=== PATIENT | female | born 1950 | race Caucasian/White ===

== ENCOUNTER 2017-05-30 03:45 | Emergency (ER) | payer MEDICARE, BC ==
[2017-05-30 03:51] VITALS: BP 152/84
[2017-05-30] MEDS ORDERED: Ondansetron 4 MG/2 ML SDV IV ONE (04:07)
--- NOTE | 2017-05-30 04:14 | EDM.PDOC ---
ED HPI GENERAL MEDICAL PROBLEM - General Chief Complaint: Gastrointestinal Problem Stated Complaint: VOMITTING, [id number] Time Seen by Provider: 05/30/17 04:00 Source of Information: Reports: Patient History Limitations: Reports: No Limitations - History of Present Illness INITIAL COMMENTS - FREE TEXT/NARRATIVE: This 67 yo female patient reports to the ED with nausea, upper abdominal pain and chest pain. The patient reports her upper abdominal pain started at about 2130 last night and has been getting worse since that time. At about 0100 this morning, the patient reports she started vomiting and feeling nauseated. After 0200 this morning, the patient reports constant nausea and vomiting. The patient started to have chest pain at about 0200. The patient describes her chest pain as a burning in the middle of her chest. The patient reports she does have a cardiac history (her cardiac rhythm intermittently goes in to bigeminy). The patient reports none of those symptoms in the past 6 months. The patient reports she did have chips, guacamole and pizza for dinner last night. Onset: Gradual Onset Date: 05/29/17 Onset Time: 21:30 Duration: Getting Worse, Intermittent Location: Reports: Chest, Abdomen Quality: Reports: Ache, Burning, Dull Severity: Moderate Improves with: Reports: None Worsens with: Reports: None Associated Symptoms: Reports: No Other Symptoms Mid-Sternal Chest Pain Score (Numeric/FACES): 1 - Related Data Allergies Allergy/AdvReac Type Severity Reaction Status Date / Time hydrocodone Allergy Cannot Verified 05/30/17 03:56 Remember paroxetine HCl [From Paxil] Allergy Cannot Verified 05/30/17 03:56 Remember sertraline HCl [From Zoloft] Allergy Cannot Verified 05/30/17 03:56 Remember Home Meds: Home Meds buPROPion [Wellbutrin XL] 150 mg PO DAILY 05/30/17 [History] Past Medical History Other HEENT History: eye surgery Other Cardiovascular History: bigeminy, PVC's Other Gastrointestinal History: abdmenial surgery Genitourinary History: Reports: Renal Calculus Other Genitourinary History: Ureter Stent - Past Surgical History Female Surgical History: Reports: Hysterectomy Other Musculoskeletal Surgeries/Procedures:: Arm wrist carpal tunnel, bunionectomy Social & Family History - Tobacco Use Smoking Status *Q: Never Smoker Second Hand Smoke Exposure: No - Recreational Drug Use Recreational Drug Use: No - Living Situation & Occupation Living situation: Reports: , with Spouse Occupation: Retired ED ROS GENERAL - Review of Systems Review Of Systems: ROS reveals no pertinent complaints other than HPI. ED EXAM, GI/ABD - Physical Exam Exam: See Below Exam Limited By: No Limitations General Appearance: Alert, WD/WN, Moderate Distress Eyes: Bilateral: Normal Appearance, EOMI Ears: Normal External Exam, Normal Canal, Hearing Grossly Normal, Normal TMs Nose: Normal Inspection, Normal Mucosa, No Blood Throat/Mouth: Normal Inspection, Normal Lips, Normal Teeth, Normal Gums, Normal Oropharynx, Normal Voice, No Airway Compromise Head: Atraumatic, Normocephalic Neck: Normal Inspection, Supple, Non-Tender, Full Range of Motion Respiratory/Chest: No Respiratory Distress, Lungs Clear, Normal Breath Sounds, No Accessory Muscle Use, Chest Non-Tender Cardiovascular: Normal Peripheral Pulses, Regular Rate, Rhythm, No Edema, No Gallop, No JVD, No Murmur, No Rub GI/Abdominal: Normal Bowel Sounds, Soft, Non-Tender, No Organomegaly, No Distention, No Abnormal Bruit, No Mass, Pelvis Stable (Female) Exam: Deferred Rectal (Female) Exam: Deferred Back Exam: Normal Inspection, Full Range of Motion, NT Extremities: Normal Inspection, Normal Range of Motion, Non-Tender, Normal Capillary Refill, No Pedal Edema Neurological: Alert, Oriented, CN II-XII Intact, Normal Cognition, Normal Gait, Normal Reflexes, No Motor/Sensory Deficits Psychiatric: Normal Affect, Normal Mood Skin Exam: Warm, Dry, Intact, Normal Color, No Rash Lymphatic: No Adenopathy Course - Vital Signs Last Recorded V/S: Last Vital Signs Temp 36.2 C 05/30/17 03:47 Pulse 83 05/30/17 03:47 Resp 20 05/30/17 03:47 BP 152/84 H 05/30/17 03:47 Pulse Ox 100 05/30/17 03:47 - Orders/Labs/Meds Orders: Active Orders 24 hr Category Date Time Status EKG Documentation Completion [RC] URGENT Care 05/30/17 03:56 Active Chest 1V Frontal [CR] Urgent Exams 05/30/17 04:07 Taken Labs: Laboratory Tests 05/30/17 05/30/17 05/30/17 Range/Units 03:55 03:55 03:55 WBC 17.9 H (5.0-10.0) 10^3/uL RBC 4.97 (4.2-5.4) 10^6/uL Hgb 13.3 (12.0-16.0) g/dL Hct 39.4 (37.0-47.0) % MCV 79.3 L (80-100) fL MCH 26.8 L (27.0-34.0) pg MCHC 33.8 (33.0-35.0) g/dL Plt Count 256 (150-450) 10^3/uL Neut % (Auto) 81.4 H (42.2-75.2) % Lymph % (Auto) 12.2 L (20.5-50.1) % [place] % (Auto) 5.9 (2-8) % Eos % (Auto) 0.4 L (1.0-3.0) % Baso % (Auto) 0.1 (0.0-1.0) % Sodium 141 (135-145) mmol/L Potassium 3.6 (3.6-5.0) mmol/L Chloride 102 (101-111) mmol/L Carbon Dioxide 27.0 (21.0-31.0) mmol/L Anion Gap 15.6 BUN 36 H (7-18) mg/dL Creatinine 0.9 (0.6-1.3) mg/dL Est Cr Clr Drug Dosing 56.00 mL/min Estimated GFR (MDRD) > 60 BUN/Creatinine Ratio 40.00 Glucose 185 H (74-105) mg/dL Calcium 9.3 (8.4-10.2) mg/dl Total Bilirubin 0.7 (0.2-1.0) mg/dL AST 24 (10-42) IU/L ALT 24 (10-60) IU/L Alkaline Phosphatase 50 (42-121) IU/L Troponin I < 0.02 (0.00-0.02) ng/ml Total Protein 6.8 (6.7-8.2) g/dl Albumin 4.3 (3.2-5.5) g/dl Globulin 2.5 Albumin/Globulin Ratio 1.72 Amylase 76 (28-100) U/L Lipase 18 L (22-51) U/L Meds: Medications Discontinued Medications Generic Name Dose Route Start Last Admin Trade Name Freq PRN Reason Stop Dose Admin Ondansetron HCl 4 mg 05/30/17 04:07 05/30/17 04:11 Zofran IV 05/30/17 04:08 4 mg ONETIME ONE Administration Departure - Departure Time of Disposition: 04:50 Disposition: Home, Self-Care 01 Condition: Fair Clinical Impression: Gastroenteritis - Discharge Information Instructions: Viral Gastroenteritis, Adult, [id number] Forms: ED Department Discharge Care Plan Goals: The patient was advised of the examination, lab, EKG and x-ray results during the visit. The patient was given a dose of IV Zofran while in the ED. The patient was discharged with a script for Zofran ODT (4 mg) #20 to take 1 by mouth every 6 hours as needed for nausea. If the patient has any additional symptoms or concerns, the patient may either follow-up with her primary care facility or return to the emergency department. - My Orders Last 24 Hours: My Active Orders 05/30/17 03:56 EKG Documentation Completion [RC] URGENT 05/30/17 04:07 Chest 1V Frontal [CR] Urgent - Assessment/Plan Last 24 Hours: My Active Orders 05/30/17 03:56 EKG Documentation Completion [RC] URGENT 05/30/17 04:07 Chest 1V Frontal [CR] Urgent
[2017-05-30 04:26] LABS: CHLORIDE,CL 102 mmol/L (101-111); SODIUM,NA 141 mmol/L (135-145)
--- NOTE | 2017-06-02 13:17 | EKG ---
05/30/2017- SALVATORE DEGROOT - EKG per my reading shows sinus rhythm at a rate of [address] changes. [facility] /[id number]
== END 2017-05-30 04:59 | disposition home or self-care (01) ==
LOC: DL.ED 03:45
DX: K52.9 Noninfective gastroenteritis and colitis, unspecified (principal); Z88.5 Allergy status to narcotic agent; Z88.8 Allergy status to other drugs, medicaments and biological substances; Z79.899 Other long term (current) drug therapy; Z98.890 Other specified postprocedural states; Z90.710 Acquired absence of both cervix and uterus
CPT/HCPCS: 36415; 71010; 80053; 82150; 83690; 84484; 85025; 93005; 93010; 96374; 99284; J2405